=== PATIENT | male | born 1950 | race Caucasian/White ===

== ENCOUNTER 2016-05-25 09:37 | Emergency (ER) | payer OTHER, MEDICARE ==
[2016-05-25] MEDS ORDERED: CYCLOBENZAPRINE10 M1 PO (11:28)
[2016-05-25] MEDS ORDERED: NORCO 325 MG-51 TA1 PO (11:28)
== END 2016-05-25 11:40 | disposition home or self-care (01) ==
LOC: ED 09:37
DX: S06.0X9A Concussion with loss of consciousness of unspecified duration, initial encounter (principal); S20.212A Contusion of left front wall of thorax, initial encounter; S80.02XA Contusion of left knee, initial encounter; V49.40XA Driver injured in collision with unspecified motor vehicles in traffic accident, initial encounter; M48.02 Spinal stenosis, cervical region
CPT/HCPCS: J3010

== ENCOUNTER 2016-05-27 07:43 | Emergency (ER) | payer OTHER, MEDICARE ==
[~2016-05-27 07:43] MED LIST: CYCLOBENZAPRINE10 M1 PO; NORCO 325 MG-51 TA1 PO
[2016-05-27] MEDS ORDERED: KETOROLAC10 MG PO (09:47)
[2016-05-27] MEDS ORDERED: ROXICODONE5 M1 PO (09:47)
== END 2016-05-27 09:53 | disposition home or self-care (01) ==
LOC: ED 07:43
DX: M54.5 Low back pain (principal); M25.562 Pain in left knee; M54.2 Cervicalgia; Z87.828 Personal history of other (healed) physical injury and trauma
CPT/HCPCS: J1885

== ENCOUNTER 2016-06-09 09:27 | Outpatient (RCR) | payer OTHER, MEDICARE ==
[2016-05-27 06:44] VITALS: BP 151/91
[~2016-06-09 09:27] MED LIST changes: +KETOROLAC10 MG PO; +ROXICODONE5 M1 PO
== END 2016-07-24 13:09 | disposition home or self-care (01) ==
LOC: PT 09:27
DX: M54.2 Cervicalgia (principal); M54.89 Other dorsalgia
CPT/HCPCS: G0283-GP

== ENCOUNTER → 2016-06-29 | Outpatient (CLI) | payer OTHER, MEDICARE ==
[2016-05-27 06:44] VITALS: BP 151/91
== END ==
LOC: RAD 17:40
DX: Z13.89 Encounter for screening for other disorder (principal); M47.9 Spondylosis, unspecified; M54.2 Cervicalgia; M50.21 Other cervical disc displacement, high cervical region; M48.02 Spinal stenosis, cervical region; M51.26 Other intervertebral disc displacement, lumbar region
CPT/HCPCS: A9579